=== PATIENT | female | born 1960 | race Caucasian/White ===

== ENCOUNTER → 2017-03-17 | Outpatient (CLI) | payer OTHER ==
--- NOTE | 2017-03-17 15:33 | REPMRS ---
Patient History The patient states she had a clinical breast exam in 02/2017. Patient is postmenopausal, has history of cancer in the left breast at age 44, and had previous chemotherapy. Family history of breast cancer in maternal aunt. Benign excisional biopsy of the left breast, 2011. Malignant mastectomy of the left breast, April 21, 2005. Chemotherapy. Digital Woman Screen Mammo: March 17, 2017 - Exam #: [id number] Bilateral CC and MLO view(s) were taken. Technologist: Solange Pagan, Technologist Prior study comparison: April 01, 2016, digital woman screen mammo performed at [facility]. March 27, 2015, digital woman screen mammo performed at [facility]. March 21, 2014, digital woman screen mammo performed at [facility]. FINDINGS: There are scattered fibroglandular densities. There has been no change in the appearance of the right breast parenchyma in the interval since the prior examination. No mass, architectural distortion, or microcalcific cluster has developed. No suspicious finding. ASSESSMENT: BI-RADS/ACR category 2 mammogram. Benign finding(s). Recommendation Routine screening mammogram in 1 year. This mammogram was interpreted with the aid of an FDA-approved computer-aided dectection system. Electronically Signed By: Sami Tomas MD 03/17/17 [id number]
== END ==
LOC: M WHC 14:24
PROVIDERS: ATTEND Internal Medicine Medical Oncology
DX: Z12.31 Encounter for screening mammogram for malignant neoplasm of breast (principal)

== ENCOUNTER → 2017-05-13 | Outpatient (CLI) | payer OTHER ==
[2017-05-13 13:54] LABS: ALBUMIN 3.8 GM/DL (3.2-5.2); ALBUMIN/GLOBULIN RATIO 1.31 (1.00-1.93); ALKALINE PHOSPHATASE 66 U/L (45-117); ALT/SGPT 26 U/L (12-78); ANION GAP 8 MEQ/L (8-16); AST/SGOT 11 U/L (15-37); BILIRUBIN,TOTAL 0.3 MG/DL (0.2-1.0); BLOOD UREA NITROGEN 10 MG/DL (7-18); CALCIUM LEVEL 8.5 MG/DL (8.5-10.1); CARBON DIOXIDE LEVEL 26 MEQ/L (21-32); CHLORIDE LEVEL 111 MEQ/L (98-107); CHOLESTEROL LEVEL 121 MG/DL (<200); CREATININE FOR GFR 0.84 MG/DL (0.55-1.02); GLOMERULAR FILTRATION RATE > 60.0 (>51); GLUCOSE, FASTING 89 MG/DL (70-105); POTASSIUM SERUM 4.2 MEQ/L (3.5-5.1); SODIUM LEVEL 145 MEQ/L (136-145); TOTAL PROTEIN 6.7 GM/DL (6.4-8.2); TRIGLYCERIDES LEVEL 132 MG/DL (<150)
== END ==
LOC: M WUC 08:34
PROVIDERS: ATTEND Physician Assistant
DX: E55.9 Vitamin D deficiency, unspecified (principal); E78.00 Pure hypercholesterolemia, unspecified

== ENCOUNTER → 2017-08-18 | Outpatient (CLI) | payer OTHER ==
--- NOTE | 2017-08-22 12:12 | DEXA ---
AP SPINE L1 - L4 0.938 -2.1 -1.2 LT FEMUR TOTAL 0.810 -1.6 -0.8 RT FEMUR TOTAL 0.848 -1.3 -0.5 TOTAL BODY TOTAL OTHER DUAL FEMUR FRAX* ASSESSMENT Risk factors: 10 year probability of fracture Major osteoporotic fracture % Hip fracture % COMMENTS: There is low bone density of the spine. There is low bone density of the right hip. There is osteoporosis of the left hip. The density of the spine has increased 7.8% since the initial exam on 2005. The spine density has increased 4.1% since the most recent exam on 08/14/2015. The density of the left hip has increased 10.1% since the initial exam on 2005. The density of the left hip has increased 2.4% since the most recent exam on 02/2015. The density of the right hip has increased 11.0% since the initial exam on 06/09. The density of the right hip has decreased 0.6% since the most recent exam on . FOLLOW-UP: Recommendation for the next bone density exam: 2 years. REHAN
== END ==
LOC: M WHC 13:04
PROVIDERS: ATTEND Internal Medicine Medical Oncology
DX: M81.0 Age-related osteoporosis without current pathological fracture (principal)

== ENCOUNTER → 2017-12-09 | Outpatient (CLI) | payer OTHER ==
[2017-12-09 10:56] LABS: ALBUMIN/GLOBULIN RATIO 1.18 (1.00-1.93); ALKALINE PHOSPHATASE 78 U/L (45-117); ALT/SGPT 29 U/L (12-78); ANION GAP 6 MEQ/L (8-16); AST/SGOT 16 U/L (7-37); BILIRUBIN,TOTAL 0.4 MG/DL (0.2-1.0); BLOOD UREA NITROGEN 12 MG/DL (7-18); CALCIUM LEVEL 8.9 MG/DL (8.5-10.1); CARBON DIOXIDE LEVEL 29 MEQ/L (21-32); CHLORIDE LEVEL 106 MEQ/L (98-107); CHOLESTEROL LEVEL 138 MG/DL (<200); CHOLESTEROL RISK RATIO 3.631 (<5); GLOMERULAR FILTRATION RATE > 60.0 (>51); GLUCOSE, FASTING 87 MG/DL (70-100); HDL CHOLESTEROL 38 MG/DL (>40); LDL CHOLESTEROL 72.4 MG/DL (<100); NON-HDL-C 100 MG/DL; POTASSIUM SERUM 4.2 MEQ/L (3.5-5.1); SODIUM LEVEL 141 MEQ/L (136-145); TOTAL PROTEIN 7.4 GM/DL (6.4-8.2); TRIGLYCERIDES LEVEL 138 MG/DL (<150)
[2017-12-09 11:03] LABS: TOTAL 25(OH) VITAMIN D 44.5 NG/ML (30.0-100.0)
== END ==
LOC: M WUC 08:29
DX: Z00.00 Encounter for general adult medical examination without abnormal findings (principal); Z85.3 Personal history of malignant neoplasm of breast; E55.9 Vitamin D deficiency, unspecified; E78.00 Pure hypercholesterolemia, unspecified
CPT/HCPCS: 84443

== ENCOUNTER → 2018-03-24 | Outpatient (CLI) | payer OTHER | LOC: M WHC 07:48 | DX: Z12.31 Encounter for screening mammogram for malignant neoplasm of breast (principal); C50.919 Malignant neoplasm of unspecified site of unspecified female breast; Z90.12 Acquired absence of left breast and nipple | CPT/HCPCS: 77067 ==

== ENCOUNTER → 2018-07-07 | Outpatient (CLI) | payer OTHER | LOC: M WUC 08:22 | DX: M25.551 Pain in right hip (principal); M79.641 Pain in right hand | CPT/HCPCS: 73130 ==

== ENCOUNTER → 2019-03-30 | Outpatient (CLI) | payer OTHER ==
[~2019-03-30] MED LIST: ATOR1TAB19 PO; CALC600T31 PO; VITA100066 PO
--- NOTE | 2019-03-30 17:44 | REPMRS ---
Patient History The patient states she had a clinical breast exam in 10/2018. Family history of breast cancer in maternal aunt. Benign excisional biopsy of the left breast, 2011. Malignant mastectomy of the left breast, April 21, 2005. Chemotherapy. Digital Woman Screen Mammo: March 30, 2019 - Exam #: [id number] Bilateral CC and MLO view(s) were taken. Technologist: Shu Ramos, Technologist Prior study comparison: March 24, 2018, bilateral digital woman screen mammo performed at [facility]. March 17, 2017, digital woman screen mammo performed at [facility]. April 01, 2016, digital woman screen mammo performed at [facility]. FINDINGS: There are scattered fibroglandular densities. There has been no change in the appearance of the right breast parenchyma in the interval since the prior examination. No mass, architectural distortion, or microcalcific cluster has developed. No suspicious finding. 3-D tomosynthesis shows no additional findings. Assessment: BI-RADS/ACR category 2 mammogram. Benign Findings. Recommendation Routine screening mammogram of the right breast in 1 year. This mammogram was interpreted with the aid of an FDA-approved computer-aided dectection system. Electronically Signed By: Sami Tomas MD 03/30/19 [id number]
== END ==
LOC: M WHC 12:24
PROVIDERS: ATTEND Nurse Practitioner Family
DX: Z12.31 Encounter for screening mammogram for malignant neoplasm of breast (principal); Z85.3 Personal history of malignant neoplasm of breast; Z90.12 Acquired absence of left breast and nipple

== ENCOUNTER → 2019-09-13 | Outpatient (CLI) | payer OTHER ==
[~2019-09-13] MED LIST changes: +MAXA10TA14 PO; +SUPE600T4 PO; +TOPA25CA PO
--- NOTE | 2019-09-17 15:55 | DEXA ---
AP SPINE L1 - L4 0.942 -2.0 -1.0 LT FEMUR TOTAL 0.814 -1.5 -0.7 LT NECK 0.708 -2.4 -1.2 RT FEMUR TOTAL 0.861 -1.2 -0.3 RT NECK 0.736 -2.2 -1.0 TOTAL BODY TOTAL OTHER COMMENTS: There is low bone density of the spine and hips. The increased density of the spine does not represent a significant change. The increased density of the left hip does not represent a significant change. The increased density of the right hip does not represent a significant change. The density of the spine has increased 8.3% since initial exam on 06/09/2006. The spine density has increased 0.4% since the most recent exam on 08/18/2017. The density of the left hip has increased 10.6% since the initial exam on 06/09/2006. The density of the left hip has increased 0.5% since the most recent exam on 08/18/2017. The density of the right hip has increased 12.7% since the initial exam on 06/09/2006. The density of the right hip has increased 1.5% since the most recent exam on 08/18/2017. FOLLOW-UP: Recommendation for the next bone density exam: 2 years. REHAN
== END ==
LOC: M WHC 14:34
PROVIDERS: ATTEND Nurse Practitioner Family
DX: Z85.3 Personal history of malignant neoplasm of breast (principal)

== ENCOUNTER → 2020-04-17 | Outpatient (CLI) | payer OTHER ==
--- NOTE | 2020-04-17 23:29 | REP ---
UNILATERAL MAMMOGRAM RIGHT BREAST WITH 3D TOMOSYNTHESIS: HISTORY: Malignant mastectomy left breast April 2005. COMPARISON: Mammogram 03/30/2019. MLO and CC views of the right breast are performed with 3D tomosynthesis. Comparison made with prior study 03/30/2019 as well as other prior exams. Volpara breast density is B. There is mild scattered fibroglandular tissue in the right breast, which is unchanged. There is no new mass or architectural distortion. There are no clustered microcalcifications. IMPRESSION: ACR 1, negative mammogram right breast in this patient status post prior left mastectomy. Suggest followup mammogram in 1 year. BIRADS 1: BI-RADS/ACR category 1 mammogram. Negative Mammogram. This mammogram was interpreted with the aid of an FDA-approved computer-aided detection system. The patient states she/he had a clinical breast exam in 03/2020. The patient letter being requested is M1.
== END ==
LOC: M WHC 12:48
PROVIDERS: ATTEND Physician Assistant
DX: Z12.31 Encounter for screening mammogram for malignant neoplasm of breast (principal)

== ENCOUNTER → 2021-04-23 | Outpatient (CLI) | payer OTHER ==
[~2021-04-23] MED LIST changes: +COVI100V IM; +D31000TA2 PO; +HYDR200T3 PO; +TOPA50TA8 PO
--- NOTE | 2021-04-23 13:27 | REP ---
INDICATION: SCR MAMMO/Z12.31 S/P LEFT MASTECTOMY. COMPARISON: Multiple TECHNIQUE: Digital screening right mammogram was obtained in the CC and MLO projections using both 2D and 3D modalities and compared to the prior exams. The patient is status post left mastectomy due to breast carcinoma. By history, the patient has no complaints of a palpable breast abnormality or other significant breast complaints.. FINDINGS: The right breast is unchanged in size and shape. There are no gabino soft tissue densities or spiculated masses. There is no internal architectural distortion. There are no suspicious calcifications. There is no skin thickening or nipple retraction. The Volpara volumetric breast density pattern is b. IMPRESSION: BIRADS/ACR category 1 negative mammogram. There is no evidence of malignant alteration of the right breast. This mammogram was interpreted with the aid of an FDA-approved computer-aided detection system. The patient states she had a clinical breast exam in February 2021. The patient letter being requested is M1. RECOMMENDATION: Repeat screening mammography recommended 1 year (for women over 40). <Electronically signed by Armando Olea > 04/23/21 [id number]
== END ==
LOC: M WHC 12:48
PROVIDERS: ATTEND Physician Assistant
DX: Z12.31 Encounter for screening mammogram for malignant neoplasm of breast (principal); Z90.12 Acquired absence of left breast and nipple

== ENCOUNTER → 2022-04-29 | Outpatient (CLI) | payer OTHER ==
[~2022-04-29] MED LIST changes: -D31000TA2 PO; +VITA100093 PO
== END ==
LOC: M WHC 12:46
PROVIDERS: ATTEND Family Medicine
DX: Z12.31 Encounter for screening mammogram for malignant neoplasm of breast (principal); Z85.3 Personal history of malignant neoplasm of breast; Z90.12 Acquired absence of left breast and nipple; M85.88 Other specified disorders of bone density and structure, other site; M85.851 Other specified disorders of bone density and structure, right thigh; M85.852 Other specified disorders of bone density and structure, left thigh

== ENCOUNTER → 2023-05-05 | Outpatient (CLI) | payer OTHER ==
[~2023-05-05] MED LIST changes: -HYDR200T3 PO; +HYDR200T46 PO; -MAXA10TA14 PO; +RIZA10TA64 PO
== END ==
LOC: M WHC 09:13
PROVIDERS: ATTEND Nurse Practitioner Family
DX: Z12.31 Encounter for screening mammogram for malignant neoplasm of breast (principal); Z85.3 Personal history of malignant neoplasm of breast; Z90.12 Acquired absence of left breast and nipple

== ENCOUNTER → 2024-05-10 | Outpatient (CLI) | payer OTHER | LOC: M WHC 06:31 | PROVIDERS: ATTEND Nurse Practitioner Family | DX: Z12.31 Encounter for screening mammogram for malignant neoplasm of breast (principal) | CPT/HCPCS: 77067; G0279 ==